=== PATIENT | male | born 1965 | race African-American/Black ===

== ENCOUNTER 2019-04-30 12:47 | Emergency (ER) | payer OTHER ==
[~2019-04-30] VITALS: Ht 170.2 cm; Wt 83.9 kg
[~2019-04-30 12:47] MED LIST: ADVIL LIQUI-GE200 MG PO; FLEXERIL PO; IBUPROFEN 800800 M1 PO; MORPHINE SULFAT15 M3 PO; NORCO 5-325 TA1 EACH PO; VICODIN 5-5001 EACH
[2019-04-30 15:00] VITALS: BP 138/100
== END 2019-04-30 15:03 | disposition home or self-care (01) ==
LOC: ER 12:47
DX: S61.012A Laceration without foreign body of left thumb without damage to nail, initial encounter (principal); F17.210 Nicotine dependence, cigarettes, uncomplicated; W26.0XXA Contact with knife, initial encounter; Y93.89 Activity, other specified; Y92.89 Other specified places as the place of occurrence of the external cause; Y99.8 Other external cause status

== ENCOUNTER 2020-04-12 07:44 | Emergency (ER) | payer BC ==
[~2020-04-12] VITALS: Ht 170.2 cm; Wt 88.5 kg
[2020-04-12 07:44] VITALS: BP 139/98
[2020-04-12] MEDS ORDERED: DOXYCYCLINE 10100 MG PO (08:55)
== END 2020-04-12 08:46 | disposition home or self-care (01) ==
LOC: ER 07:44
DX: T79.0XXA Air embolism (traumatic), initial encounter (principal); R05 Cough; M79.18 Myalgia, other site; R51.9 Headache, unspecified; F17.210 Nicotine dependence, cigarettes, uncomplicated; Z91.018 Allergy to other foods; Z20.828 Contact with and (suspected) exposure to other viral communicable diseases; X58.XXXA Exposure to other specified factors, initial encounter; Y93.89 Activity, other specified; Y92.89 Other specified places as the place of occurrence of the external cause; Y99.8 Other external cause status